=== PATIENT | male | born 1945 | race Caucasian/White ===

== ENCOUNTER 2024-08-21 10:13 | Day surgery (SDC) | payer MEDICARE, BC ==
[2024-08-21] MEDS ORDERED: LIDOCAINE HCL 2% 100 MG/5 ML IJ ONE (10:14)
[2024-08-21] MEDS ORDERED: methylPREDNISolone acetate IM ONE (10:14)
[2024-08-21] MEDS ORDERED: propofoL IV ONE (12:49)
--- NOTE | 2024-08-21 13:17 | XRAY ---
Indication: Bilateral L4-S1 MBB. Intraoperative fluoroscopy provided for 21 seconds. Single digital spot image submitted for interpretation demonstrates posterior needle tips projecting over expected left and right L4-S1 nerve roots. Correlate with intraoperative findings/report. Incidental incompletely visualized multilevel lumbar posterior fusion hardware
--- NOTE | 2024-08-21 14:52 | XRAY ---
21 seconds of fluoroscopy was used in surgery for a bilateral L4-S1 MBB.
== END 2024-08-21 13:24 | disposition home or self-care (01) ==
LOC: SDC-PAIN 10:13
PROVIDERS: ATTEND Psychiatry & Neurology Pain Medicine
DX: M47.816 Spondylosis without myelopathy or radiculopathy, lumbar region (principal)
CPT/HCPCS: 64493; 64494; 72020; 77002; J1010; J2704

== ENCOUNTER 2024-09-24 12:14 | Day surgery (SDC) | payer MEDICARE, BC ==
[2024-09-24] MEDS ORDERED: BUPIVACAINE 0.5% VIAL IJ ONE (12:15)
[2024-09-24] MEDS ORDERED: Depo-Medrol 40 MG/ML IM ONE (12:15)
[2024-09-24] MEDS ORDERED: propofoL IV ONE (14:38)
--- NOTE | 2024-09-24 16:29 | XRAY ---
Indication: Bilateral L4-S1 MBB. Intraoperative fluoroscopy provided for 13 seconds. Single digital spot image submitted for interpretation demonstrates posterior needle tips projecting over expected left and right L4-S1 nerve roots. Correlate with intraoperative findings/report. Incidental incompletely visualized multilevel lumbar posterior fusion hardware.
--- NOTE | 2024-09-24 16:46 | XRAY ---
13 seconds of fluoroscopy was used in surgery for a bilateral L4-S1 MBB.
== END 2024-09-24 15:00 | disposition home or self-care (01) ==
LOC: SDC-PAIN 12:14
PROVIDERS: ATTEND Psychiatry & Neurology Pain Medicine
DX: M47.817 Spondylosis without myelopathy or radiculopathy, lumbosacral region (principal)
CPT/HCPCS: 64493; 64494; 72020; J2704

== ENCOUNTER 2024-10-22 09:45 | Day surgery (SDC) | payer MEDICARE, BC ==
[2024-10-22] MEDS ORDERED: methylPREDNISolone acetate IM ONE (09:46)
[2024-10-22] MEDS ORDERED: LIDOCAINE HCL 1% 50 MG/5 ML VL IJ ONE (09:46)
[2024-10-22] MEDS ORDERED: BUPIVACAINE 0.5% VIAL IJ ONE (09:46)
[2024-10-22] MEDS ORDERED: Lactated Ringers 1,000 ML IV ONE (09:46)
[2024-10-22] MEDS ORDERED: propofoL IV ONE (11:34)
--- NOTE | 2024-10-22 21:06 | XRAY ---
Indication: Right L4-S1 RFA. Intraoperative fluoroscopy provided for 31 seconds. 3 digital spot image submitted for interpretation demonstrates posterior needle tips projecting over expected right L4-S1 nerve roots. Correlate with intraoperative findings/report. Incidental incompletely visualized multilevel bilateral lumbar fusion hardware
--- NOTE | 2024-10-22 21:22 | XRAY ---
31 seconds of fluoroscopy was used in surgery for a right L4-S1 RFA.
== END 2024-10-22 12:13 | disposition home or self-care (01) ==
LOC: SDC-PAIN 09:45
PROVIDERS: ATTEND Psychiatry & Neurology Pain Medicine
DX: M47.817 Spondylosis without myelopathy or radiculopathy, lumbosacral region (principal)
CPT/HCPCS: 64635; 64636; 72100; 99100; J1010; J2704

== ENCOUNTER 2025-04-15 06:44 | Day surgery (SDC) | payer MEDICARE, BC ==
[2025-04-15] MEDS ORDERED: Sodium Chloride 0.9(Preservative Free) 10 ML IJ ONE (06:45)
[2025-04-15] MEDS ORDERED: LIDOCAINE HCL 1% 50 MG/5 ML VL IJ ONE (06:45)
[2025-04-15] MEDS ORDERED: propofoL IV ONE (08:09)
[2025-04-15] MEDS ORDERED: Lactated Ringers 1,000 ML IV ONE (11:04)
--- NOTE | 2025-04-15 11:11 | XRAY ---
Indication: Spinal cord stimulator trial Intraoperative fluoroscopy provided for 1 minute 11 seconds. 16 digital spot images submitted for interpretation demonstrates initial introducer needle tip posterior to last thoracic segment. Single epidural lead inserted with tip positioned approximately T9 level. Correlate with intraoperative findings/report. Incidental incompletely visualized bilateral lumbar fusion hardware.
--- NOTE | 2025-04-15 13:09 | XRAY ---
One minute and 11 seconds of fluoroscopy was used in surgery for a spinal cord stimulator trial.
== END 2025-04-15 09:20 | disposition home or self-care (01) ==
LOC: SDC-PAIN 06:44
PROVIDERS: ATTEND Psychiatry & Neurology Pain Medicine
DX: M96.1 Postlaminectomy syndrome, not elsewhere classified (principal)